=== PATIENT | male | born 1960 | race Caucasian/White ===

== ENCOUNTER 2021-06-16 18:57 | Emergency (ER) | payer OTHER ==
[~2021-06-16] VITALS: Ht 152.4 cm; Wt 72.6 kg
[2021-06-16] MEDS ORDERED: COZAAR50 MG PO (19:37)
[2021-06-16] MEDS ORDERED: ZIAC 5-6.25 MG1 EACH PO (19:37)
== END 2021-06-16 20:28 | disposition home or self-care (01) ==
LOC: ER 18:57
DX: S43.005A Unspecified dislocation of left shoulder joint, initial encounter (principal); X58.XXXA Exposure to other specified factors, initial encounter; Y93.9 Activity, unspecified; Y92.9 Unspecified place or not applicable; Y99.9 Unspecified external cause status